=== PATIENT | female | born 2000 | race Caucasian/White ===

== ENCOUNTER 2022-10-06 17:41 | Emergency (ER) | payer MEDICAID ==
[~2022-10-06] VITALS: Ht 157.5 cm; Wt 79.4 kg
[2022-10-06 18:01] VITALS: BP 135/73
[2022-10-06 18:34] LABS: APPEARANCE,URINE SL CLOUDY (CLEAR); BILIRUBIN,URINE NEGATIVE (NEGATIVE); BLOOD, URINE NEGATIVE (NEGATIVE); COLOR,URINE YELLOW (YELLOW); LEUKOCYTE ESTERASE ,URINE NEGATIVE (NEGATIVE); NITRITE, URINE NEGATIVE (NEGATIVE); UGLUCOSE NEGATIVE (NEGATIVE)
[2022-10-06] MEDS ORDERED: KETOROLAC 30 MG/ML VIAL IM ONE (19:10)
[2022-10-06] MEDS ORDERED: LORazepam 1 MG TAB PO ONE (19:10)
[2022-10-06] MEDS ORDERED: LID5T TP (19:56)
[2022-10-06] MEDS ORDERED: CYCL-711 PO (19:56)
[2022-10-06] MEDS ORDERED: HYDROcodone/APAP 5/325 MG 1 TAB TAB PO ONE (20:15)
== END 2022-10-06 23:54 | disposition home or self-care (01) ==
LOC: MED 17:41
DX: M62.830 Muscle spasm of back (principal); Z79.899 Other long term (current) drug therapy
CPT/HCPCS: 72100; 81003; 81025; 96372; 99284; J1885